=== PATIENT | male | born 1990 | race Two or more races ===

== ENCOUNTER 2022-10-02 04:56 | Emergency (ER) | payer MEDICAID ==
[~2022-10-02] VITALS: Ht 177.8 cm; Wt 79.4 kg
[2022-10-02] MEDS ORDERED: MORPHINE SULFATE INJ 4 MG/ML DISP.SYRIN ONE (05:14)
[2022-10-02] MEDS ORDERED: MORPHINE SULFATE INJ 2 MG/ML DISP.SYRIN IV ONE (05:30)
[2022-10-02] MEDS ORDERED: MORPHINE SULFATE INJ 2 MG/ML DISP.SYRIN ONE (06:13)
[2022-10-02] MEDS ORDERED: KETOROLAC TROMETHAMINE INJ 30 MG/ML VIAL ONE (06:13)
[2022-10-02] MEDS: MORPHINE SULFATE INJ 2 MG/ML DISP.SYRIN IM ONE ×2 (06:20→06:23)
[2022-10-02] MEDS: KETOROLAC TROMETHAMINE INJ 60 MG/2 ML VIAL IM ONE ×3 (06:20→06:52)
[2022-10-02 06:55] VITALS: BP 123/87; TEMP 98.5; O2SAT 98
== END 2022-10-02 06:56 | disposition home or self-care (01) ==
LOC: ER 04:58
DX: S43.035A Inferior dislocation of left humerus, initial encounter (principal); X58.XXXA Exposure to other specified factors, initial encounter; Y93.89 Activity, other specified; Y92.89 Other specified places as the place of occurrence of the external cause; Y99.8 Other external cause status
CPT/HCPCS: 99285; 23650; 99152; 73030 ×2; 96372; J2270 ×2; J1885; J7040; G0500